=== PATIENT | male | born 1980 | race Caucasian/White ===

== ENCOUNTER 2019-12-17 12:53 | Emergency (ER) | payer BC, MEDICAID ==
[~2019-12-17] VITALS: Ht 170.2 cm; Wt 75.0 kg
[2019-12-17 13:47] VITALS: BP 141/68
== END 2019-12-17 14:37 | disposition home or self-care (01) ==
LOC: ER 12:53
DX: M79.644 Pain in right finger(s) (principal); Z88.6 Allergy status to analgesic agent
CPT/HCPCS: 29130; 99283

== ENCOUNTER 2025-01-03 20:15 | Emergency (ER) | payer MEDICAID ==
[~2025-01-03] VITALS: Ht 167.6 cm; Wt 83.2 kg
[2025-01-03 20:55] VITALS: O2SAT 99
[2025-01-03] MEDS ORDERED: RALT400T MT (21:12)
[2025-01-03] MEDS ORDERED: EMTR1TAB20 MT (21:12)
[2025-01-03 21:34] LABS: BASOPHILS % 0.5 % (0.0-2.0); EOSINOPHILS % 1.8 % (0.0-5.0); HEMATOCRIT. 52.2 % (42.0-52.0); HEMOGLOBIN. 18.1 g/dL (14.0-18.0); LYMPHOCYTES % 27.3 % (20.0-50.0); MEAN PLATELET VOLUME 8.9 fl (7.4-10.4); MONOCYTES % 7.3 % (2.0-8.0); NEUTROPHILS % 63.1 % (40.0-76.0); PLATELET 211 x1000/uL (130-400); RED BLOOD CELL COUNT 5.48 mill/uL (4.7-6.1); RED CELL DISTRIBUTION WIDTH 12.4 % (11.6-14.6)
[2025-01-03 21:40] LABS: CREATININE 1.2 mg/dL (0.6-1.3); UREA NITROGEN BLOOD 11 mg/dL (9-23)
[2025-01-03 21:42] VITALS: BP 154/79; PULSE 68; RESP 16; TEMP 37.1; O2SAT 99
[2025-01-03 21:42] LABS: ASPARTATE AMINOTRANSFERASE 18 IU/L (<34)
[2025-01-03 21:43] LABS: BILIRUBIN DIRECT 0.7 mg/dL (<=3.0); BILIRUBIN TOTAL 3.7 mg/dL (0.1-1.0); PROTEIN TOTAL 7.1 g/dL (6.0-8.3)
[2025-01-03 22:24] LABS: HIV 1/2 AB P24AG Negative (Negative)
[2025-01-03 22:33] LABS: HEPATITIS C AB NON REACTIVE (Neg) (Negative)
[2025-01-03 22:46] LABS: HEPATITIS C VIR.AB < 0.02 INDEXVAL (0.00-0.80)
[2025-01-03 22:47] LABS: HEPATITIS C VIR.AB < 0.02 INDEXVAL (0.00-0.80)
[2025-01-07 04:09] LABS: HSV TYPE 2 SPECIFIC AB IGG Non Reactive (Non Reactive)
== END 2025-01-03 21:47 | disposition home or self-care (01) ==
LOC: ER 20:15
DX: Z77.21 Contact with and (suspected) exposure to potentially hazardous body fluids (principal); Z88.5 Allergy status to narcotic agent
CPT/HCPCS: 36415; 80048; 80076; 85025; 86592; 86695; 86696; 86705; 87340; 99283